=== PATIENT | male | born 2000 | race Caucasian/White ===

== ENCOUNTER 2018-03-23 11:13 | Observation (INO) | payer BC ==
[2018-03-23] VITALS (8 sets, daily range): BP systolic 102–115; BP diastolic 56–68; PULSE 49–64; TEMP 97.3–98.4
[~2018-03-23] VITALS: Ht 190.5 cm; Wt 63.6 kg
[2018-03-23 11:56] LABS: COLLECTION METHOD CATHETER
[2018-03-23 12:07] LABS: PH 8 (5-8); SQUAMOUS EPITHELIAL 0-2 /hpf; URINE APPEARANCE Clear; URINE BACTERIA None Seen /hpf; URINE BILIRUBIN Negative (NEGATIVE); URINE BLOOD 2+ (NEGATIVE); URINE COLOR Straw; URINE GLUCOSE Negative (NEGATIVE); URINE KETONE Negative (NEGATIVE); URINE LEUKOCYTE ESTERASE Negative (NEGATIVE); URINE NITRATE Negative (NEGATIVE); URINE PROTEIN(semi-quant) Negative (NEGATIVE); URINE RBC 20-50 /hpf; URINE UROBILINOGEN Negative (NEGATIVE)
== END 2018-03-23 19:00 | disposition home or self-care (01) ==
LOC: COL.ER 11:13 → SURG 13:04
PROVIDERS: Family Medicine
DX: N35.9 Urethral stricture, unspecified (principal)
CPT/HCPCS: C1769; J1100; J2250; J2405; J2704; J3010

== ENCOUNTER → 2018-06-10 | Outpatient (CLI) | payer BC | LOC: COL.VAS 12:22 | DX: Z01.89 Encounter for other specified special examinations (principal); Q87.40 Marfan syndrome, unspecified ==